=== PATIENT | male | born 1995 | race Caucasian/White ===

== ENCOUNTER 2017-01-30 12:52 | Emergency (ER) | payer BC ==
[~2017-01-30] VITALS: Ht 175.3 cm; Wt 66.5 kg
[2017-01-30 13:00] VITALS: TEMP 37.1; Ht 175.3 cm; Wt 66.5 kg
[2017-01-30] MEDS ORDERED: ZOLP10TA PO (13:53)
--- NOTE | 2017-01-30 13:55 | EMERGENCY ROOM VISIT NOTE ---
History First contact with patient: 13:10 Chief Complaint: ANXIETY Stated Complaint: EXTREME ANXIETY, MENTAL BREAKDOWN, HAVENT SLEPT History of Present Illness The patient is a 21 year old male who presents to the Emergency Room with complaints of increased stress since Friday. 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 His current GPA is slightly over 3.0. The patient states that he had 4-5 projects due this week and was unable to start studying for his finals which are next week. He states he has 5 slight finals in 3 days starting on Friday morning. The patient states he has not been able to sleep for the past 3 days because his heart is racing at night. The patient admits to decreased appetite although he states he is forcing himself to eat but yet he states he has lost 20 pounds in the last week. He has completed the projects for this week. He discussed the situation with his parents and they won him to try and finish this semester. 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 The patient states yesterday he felt suicidal light there was no otherwise out of his situation. He does not have a plan. The patient has never experienced this before. The patient's denies any tobacco use or any illicit drug use. The patient does admit to occasional alcohol use. The patient denies any significant past medical history or any surgeries. Review of Systems 10 system review was performed and was negative unless stated otherwise history of present illness. Social History Smoking Status: Former Smoker Smokeless Tobacco Use: No Alcohol Use: occasionally Drug Use: none Marital Status: single Housing Status: lives with roommate Occupation Status: [employer] student Physical Exam Vital Signs Date Time Temp Pulse Resp B/P (MAP) Pulse Ox O2 Delivery O2 Flow Rate FiO2 01/30/17 13:00 37.1 64 18 135/80 99 Room Air Physical Exam GENERAL: 21-year-old white male appears in no acute distress. MENTAL Status: Alert and oriented 3. The patient's affect is very flat. He is nontender full. He answers questions appropriately. He does not appear anxious. EYES: PERRLA. EOMs intact. EARS: Canals clear. TMs without fluid level noted. NECK: Supple, no lymphadenopathy noted. No carotid bruits noted. LUNGS: Clear auscultation without wheezes rales or rhonchi. CARDIAC: Regular rate and rhythm without murmur. Pulses is full and equal throughout. ABDOMEN: Positive bowel sounds all 4 quadrants. Soft, nontender to palpation without organomegaly or masses. NEURO:Cranial nerves two through 12 intact. Cerebellar function intact with [id number]. Fine motor intact with alternating finger motions. Medical Decision & Procedures ED Course The patient was evaluated. I discussed the case with Katia from mental health who stated she will evaluate the patient before ordering any labs since she did not feel by my interview with the patient that he would meet criteria for admission. Katia spoke with the patient and she did not feel that he would meet criteria for admission and he told her basically he wanted a note from me to his professors to try and reschedule his finals. I spoke with the patient that I would do that for him and give him something to sleep at night. Patient was in agreement with treatment and plan and was discharged home in stable condition. Medical Decision Differential diagnosis include anxiety, depression, slight suicidal ideation, insomnia, mood disorder Medication Reconcilliation Current Medication List: was personally reviewed by me Blood Pressure Screening Patient's blood pressure: Normal blood pressure Impression Primary Impression: Mild mood disorder Additional Impression: Insomnia Departure Information Dispostion Home / Self-Care Condition GOOD Prescriptions Zolpidem Tartrate (AMBIEN) 10 Mg Tab 10 MG PO HS for 7 Days, #7 TAB Prov: Jodie Pulido PA-C 01/30/17 Forms HOME CARE DOCUMENTATION FORM, IMPORTANT VISIT INFORMATION Patient Instructions Insomnia, My [facility] Additional Instructions Push fluids. Make sure you are eating a well-balanced diet. Take Ambien at night to help you sleep. If your professors about getting here final rescheduled and spread out over the next week. If you have any suicidal homicidal ideations. He is return to the ER immediately. Problem Qualifiers Additional Impression: Insomnia Insomnia type: unspecified Qualified Codes: G47.00 - Insomnia, unspecified
[2017-01-30 14:03] VITALS: BP 129/65; PULSE 53; O2SAT 100
== END 2017-01-30 14:04 | disposition home or self-care (01) ==
LOC: C.EDB 12:55 → C.EDA 14:04
DX: G47.00 Insomnia, unspecified (principal); F39 Unspecified mood [affective] disorder; Z87.891 Personal history of nicotine dependence

== ENCOUNTER 2017-02-03 17:28 | Emergency (ER) | payer BC ==
[~2017-02-03] VITALS: Ht 175.3 cm; Wt 64.8 kg
[~2017-02-03 17:28] MED LIST: ZOLP10TA PO
[2017-02-03 17:33] VITALS: TEMP 37; Ht 175.3 cm; Wt 64.8 kg
--- NOTE | 2017-02-03 17:52 | EMERGENCY ROOM VISIT NOTE ---
History Report prepared by Joe: Zach Brown Under the Supervision of: Dr. Alan Schwartz D.O. 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 Per the psychiatric case reviewer, the patient is suicidal and has not slept in 24 hours. The patient was just seen at [facility], and the patient told the staff there that he needed admission because he is "not safe". The patient was seen here at the ED 4 days ago due to anxiety about finals, and was diagnosed with mild mood disorder. The patient states that he has been overwhelmed with school , and has been having sleeping problems, even going at points 3 days without sleeping. The patient states that he was given a sleeping pill when he was seen here last time, and has been taking that. He notes that he has had anxiety attacks for almost a week straight, and he is worried because he is a senior and it does not look like he is going to graduate, and he thinks that he has wasted a lot of money. The patient states that he has been having thoughts of hurting himself over the past few weeks, but he has never attempted to hurt himself before. He says that his thoughts include jumping off a shila. He notes no surgical history. He does not use tobacco products, drink alcohol, or use recreational drugs. Source of History: patient, other (psych case reviewer) Onset: Past few weeks Position: other (global - suicidal ideations) Symptom Intensity: told [facility] he is not safe Quality: other (thinking about jumping off shila) Timing: worsening Note: Associated symptoms: Concerned about not graduating. Review of Systems See HPI for pertinent positives & negatives. A total of 10 systems reviewed and were otherwise negative. Past Medical & Surgical Medical Problems: (1) Mild mood disorder Mood disorder Family History No pertinent family history Social History Smoking Status: Never Smoker Smokeless Tobacco Use: No Alcohol Use: none Drug Use: none Marital Status: single Housing Status: lives with roommate Occupation Status: [employer] student Current/Historical Medications Scheduled Zolpidem Tartrate (Ambien), 10 MG PO HS Allergies Coded Allergies: No Known Allergies (Unverified , 02/03/17) Physical Exam Vital Signs Date Time Temp Pulse Resp B/P (MAP) Pulse Ox O2 Delivery O2 Flow Rate FiO2 02/04/17 03:24 71 16 137/74 99 02/03/17 20:10 54 16 118/67 99 Room Air 02/03/17 17:33 37.0 55 16 121/80 99 Room Air Physical Exam GENERAL: Patient is awake, alert, quite appearing but does not appear to be uncomfortable. EYES: The conjunctivae are clear. The pupils are round and reactive. No fluorescein uptake of either cornea. EARS, NOSE, MOUTH AND THROAT: The nose is without any evidence of any deformity. Mucous membranes are moist tongue is midline NECK: The neck is nontender and supple. RESPIRATORY: Normal respiratory effort is noted there is no evidence of wheezing rhonchi or rales CARDIOVASCULAR: Regular rate and rhythm noted there no murmurs rubs or gallops normal S1 normal S2 GASTROINTESTINAL: The abdomen is soft. Bowel sounds are present in all quadrants. Abdomen is nontender MUSCULOSKELETAL/EXTREMITIES: There is no evidence of gross deformity full range of motion is noted in the hips and shoulders SKIN: There is no obvious evidence of any rash. There are no petechiae, pallor or cyanosis noted. NEUROLOGIC: Patient is awake alert and oriented x3 strength is symmetric patellar reflexes are 2+ bilaterally PSYCH: Affect was flat. Patient appeared depressed, currently admitting to suicidal ideation with plan to jump off a shila. Medical Decision & Procedures Laboratory Results 02/03/17 17:59 Red Blood Count 4.94, Mean Corpuscular Volume 90.3, Mean Corpuscular Hemoglobin 32.2, Mean Corpuscular Hemoglobin Concent 35.7, Mean Platelet Volume 9.8, Neutrophils (%) (Auto) 64.6, Lymphocytes (%) (Auto) 24.8, Monocytes (%) (Auto) 10.4, Eosinophils (%) (Auto) 0.0, Basophils (%) (Auto) 0.1, Neutrophils # (Auto ) 4.59, Lymphocytes # (Auto) 1.76, Monocytes # (Auto) 0.74, Eosinophils # (Auto ) 0.00, Basophils # (Auto) 0.01 02/03/17 17:59 Test 02/03/17 17:59 02/03/17 18:10 White Blood Count 7.11 K/uL (4.8-10.8) Red Blood Count 4.94 M/uL (4.7-6.1) Hemoglobin 15.9 g/dL (14.0-18.0) Hematocrit 44.6 % (42-52) Mean Corpuscular Volume 90.3 fL (80-100) Mean Corpuscular Hemoglobin 32.2 pg (25-34) Mean Corpuscular Hemoglobin Concent 35.7 g/dl (32-36) Platelet Count 289 K/uL (130-400) Mean Platelet Volume 9.8 fL (7.4-10.4) Neutrophils (%) (Auto) 64.6 % Lymphocytes (%) (Auto) 24.8 % Monocytes (%) (Auto) 10.4 % Eosinophils (%) (Auto) 0.0 % Basophils (%) (Auto) 0.1 % Neutrophils # (Auto) 4.59 K/uL (1.4-6.5) Lymphocytes # (Auto) 1.76 K/uL (1.2-3.4) Monocytes # (Auto) 0.74 K/uL (0.11-0.59) Eosinophils # (Auto) 0.00 K/uL (0-0.5) Basophils # (Auto) 0.01 K/uL (0-0.2) RDW Standard Deviation 41.5 fL (36.4-46.3) RDW Coefficient of Variation 12.7 % (11.5-14.5) Immature Granulocyte % (Auto) 0.1 % Immature Granulocyte # (Auto) 0.01 K/uL (0.00-0.02) Anion Gap 7.0 mmol/L (3-11) Est Creatinine Clear Calc Drug Dose 115.2 ml/min Estimated GFR () 135.5 Estimated GFR (Non- 116.9 BUN/Creatinine Ratio 22.2 (10-20) Calcium Level 9.6 mg/dl (8.5-10.1) Total Bilirubin 0.9 mg/dl (0.2-1) Direct Bilirubin 0.2 mg/dl (0-0.2) Aspartate Amino Transf (AST/SGOT) 7 U/L (15-37) Alanine Aminotransferase (ALT/SGPT) 12 U/L (12-78) Alkaline Phosphatase 81 U/L (45-117) Total Protein 8.1 gm/dl (6.4-8.2) Albumin 4.8 gm/dl (3.4-5.0) Thyroid Stimulating Hormone (TSH) 0.538 uIu/ml (0.300-4.500) Ethyl Alcohol mg/dL < 3.0 mg/dl (0-3) Monoscreen NEG (NEG) Urine Color DK YELLOW Urine Appearance CLOUDY (CLEAR) Urine pH 6.0 (4.5-7.5) Urine Specific [place] 1.035 (1.000-1.030) Urine Protein TRACE (NEG) Urine Glucose (UA) NEG (NEG) Urine Ketones 1+ (NEG) Urine Occult Blood NEG (NEG) Urine Nitrite NEG (NEG) Urine Bilirubin NEG (NEG) Urine Urobilinogen NEG (NEG) Urine Leukocyte Esterase NEG (NEG) Urine WBC (Auto) 1-5 /hpf (0-5) Urine RBC (Auto) 0-4 /hpf (0-4) Urine Hyaline Casts (Auto) 1-5 /lpf (0-5) Urine Epithelial Cells (Auto) 10-20 /lpf (0-5) Urine Bacteria (Auto) NEG (NEG) Urine Opiates Screen NEG (NEG) Urine Methadone, Qualitative NEG (NEG) Urine Barbiturates NEG (NEG) Urine Phencyclidine (PCP) Level NEG (NEG) Ur Amphetamine/Methamphetamine NEG (NEG) MDMA (Ecstasy) Screen NEG (NEG) Urine Benzodiazepines Screen NEG (NEG) Urine Cocaine Metabolite NEG (NEG) Urine Marijuana (THC) NEG (NEG) Laboratory results per my review. Medications Administered Medications (Trade) Dose Ordered Sig/Taryn Route Start Time Stop Time Status Last Admin Dose Admin Lorazepam (Ativan Tab) 0.5 mg NOW STAT SL 02/03/17 18:30 02/03/17 18:31 DC 02/03/17 18:41 0.5 MG ED Course 1740: The patient was evaluated in room A8. A complete history and physical examination were performed. 1830: Ordered Ativan Tab 0.5 mg SL. Medical Decision Differential diagnosis: Etiologies such as mood disorder, infection, hypoglycemia, electrolyte abnormalities, cardiac sources, intracerebral event, toxicologic, neurologic, as well as others were entertained. Nursing notes reviewed. Patient's previous electronic medical records reviewed. The patient is a 21-year-old male who presented to emergency department for an evaluation of anxiety and depression. The patient has had suicidal ideation which is very significant. The patient was seen in our facility recently for insomnia. He was evaluated by the mental health delegate at that time he was able to contract for safety and was sent home. The patient was medically cleared in the emergency department and then evaluated by the mental health case reviewer. The patient was felt to be a good candidate for inpatient management and he was agreeable to this. The patient was evaluated by the mental health delegate in the emergency department and a bed search was underway. The patient was signed out to the nighttime physician at change of shift. Please see his note for final disposition and plan. Medication Reconcilliation Current Medication List: was personally reviewed by me Blood Pressure Screening Patient's blood pressure: Normal blood pressure Impression Primary Impression: Depression Additional Impressions: Suicidal ideation Acute anxiety Scribe Attestation The scribe's documentation has been prepared under my direction and personally reviewed by me in its entirety. I confirm that the note above accurately reflects all work, treatment, procedures, and medical decision making performed by me. Departure Information Referrals No Doctor, Assigned (PCP) Patient Instructions My [facility] Problem Qualifiers Primary Impression: Depression Depression Type: unspecified Qualified Codes: F32.9 - Major depressive disorder, single episode, unspecified
[2017-02-03 18:20] LABS: BASO % 0.1 %; BASO ABS # 0.01 K/uL (0-0.2); COMPLETE YES; HEMATOCRIT 44.6 % (42-52); IG% 0.1 %; LYMPH % 24.8 %; LYMPH ABS # 1.76 K/uL (1.2-3.4); MEAN CELL VOLUME 90.3 fL (80-100); MEAN CORPUSCULAR HEMOGLOBIN 32.2 pg (25-34); MEAN CORPUSCULAR HGB CONC 35.7 g/dl (32-36); MEAN PLATELET VOLUME 9.8 fL (7.4-10.4); MONO % 10.4 %; NEUT % 64.6 %; PLATELET COUNT 289 K/uL (130-400); RED BLOOD COUNT 4.94 M/uL (4.7-6.1); WHITE BLOOD COUNT 7.11 K/uL (4.8-10.8)
[2017-02-03 18:25] LABS: URINE APPEARANCE CLOUDY (CLEAR); URINE BILIRUBIN NEG (NEG); URINE COLOR DK YELLOW; URINE NITRITE NEG (NEG); URINE SPECIFIC GRAVITY 1.035 (1.000-1.030); UROBILINOGEN NEG (NEG)
[2017-02-03 18:26] LABS: MANUAL MICROSCOPIC REQUIRED? NO; REVIEW REQ? NO
[2017-02-03] MEDS ORDERED: LORAZEPAM 0.5 MG TAB SL STA (18:30)
[2017-02-03 18:38] LABS: BUN/CREATININE RATIO 22.2 (10-20); CALCIUM 9.6 mg/dl (8.5-10.1); CREATININE 0.93 mg/dl (0.60-1.40)
[2017-02-03 18:49] LABS: THYROID STIMULATING HORMONE 0.538 uIu/ml (0.300-4.500)
[2017-02-03 18:50] LABS: BENZODIAZEPINE, URINE NEG (NEG); COCAINE,URINE NEG (NEG); PHENCYCLIDINE, URINE NEG (NEG)
--- NOTE | 2017-02-04 03:08 | EMERGENCY ROOM VISIT NOTE ---
ED Visit Note First contact with patient: 23:41 21 yr old male arrived earlier in the evening and evaluated by Dr Schwartz for evaluation of suicidal thoughts. He is depressed and admits to suicidal ideation/thoughts in setting of poor grades. He has not been sleeping and was recently here for insomnia for which Ambien was trialled. Dr Schwartz medically cleared patient and signed him out to me with plan for 201 admission to psychiatric facility. I discussed this with patient who admits he was thinking of hanging himself and had been looking at a belt in his room thinking of using it as a noose. He admits depression and sadness regarding classes, grades and fear of not graduating. This he admits has been compounded by the fact he has been so stressed he hasn't slept in several days. After discussing at length with him he requested I discuss case with his parents. I called parents and had lengthy discussion with both of them with them on their speaker phone ([phone]). They were understandably upset and did seem to have some issue with fact I did not feel it safe for him to be sent home. They asked that I keep him here in ED so they could come get him and take him home themselves. I made it clear I did not feel that it would be appropriate nor safe to send there son home with them. I made it clear that I ( as well as Dr Schwartz, mental health porter sample case, and staff) feel he requires evaluation at an inpatient psychiatric facility. I made it clear to them I did not feel I could medically nor legally let them take him home. They were a bit upset with me that I was keeping patient awake though I tried explaining that this is not what I am doing. They were upset that ED provider gave pt Ambien and not Ativan the other day. I explained that while I could not speak directly for this provider, that it seemed appropriate treatment to me, as well as Ativan is a highly addictive controlled medication that we try to avoid using if possible. After about 15 minutes of discussion with them I made it clear that patient would need inpatient treatment and that patient had already agreed to be admitted voluntarily (which they claimed he was being involuntarily committed). I tried to my utmost best to explain the situation, the high risks/dangers and the limitations of what ED can do in these situations. Patient was accepted to [facility], he freely signed 201, and he was stable at time of transfer.
[2017-02-04 03:24] VITALS: BP 137/74; PULSE 71; O2SAT 99
[2017-02-05 13:42] LABS: EBV EARLY ANTIGEN AB 11.2 U/ML
== END 2017-02-04 03:26 ==
LOC: C.EDB 17:28 → C.EDA 02-04 03:26
DX: F32.9 Major depressive disorder, single episode, unspecified (principal); R45.851 Suicidal ideations; F41.9 Anxiety disorder, unspecified